=== PATIENT | male | born 1975 | race Two or more races ===

== ENCOUNTER 2021-08-31 16:16 | Emergency (ER) | payer SELFPAY ==
[~2021-08-31] VITALS: Ht 167.6 cm; Wt 86.2 kg
[2021-08-31 16:32] VITALS: BP 169/96
[2021-08-31] MEDS ORDERED: ALBUTEROL FS 2.5 MG/3 ML VIAL.NEB NEB ONE (17:00)
[2021-08-31] MEDS ORDERED: predniSONE 20 MG TABLET PO ONE (17:00)
[2021-08-31] MEDS ORDERED: predniSONE 20 MG TABLET ONE (17:00)
[2021-08-31] MEDS ORDERED: IPRATROPIUM NEB FS 0.5 MG/2.5 ML AMPUL.NEB NEB ONE (17:00)
[2021-08-31] MEDS ORDERED: ALBUTEROL FS 2.5 MG/3 ML VIAL.NEB ONE (17:02)
[2021-08-31] MEDS ORDERED: IPRATROPIUM NEB FS 0.5 MG/2.5 ML AMPUL.NEB ONE (17:02)
[2021-08-31] MEDS ORDERED: ALBUTEROL FS 2.5 MG/0.5 ML VIAL.NEB ONE (17:02)
--- NOTE | 2021-08-31 17:10 | NUR ---
RT GIVING BREATHING TREATMENT
[2021-08-31] MEDS ORDERED: DOXY100C2 PO (17:46)
[2021-08-31] MEDS ORDERED: METH4TAB17 PO (17:46)
[2021-08-31] MEDS ORDERED: BENZ-13 PO (17:46)
[2021-08-31] MEDS ORDERED: ALBU18HF2 INH (17:46)
[2021-08-31] MEDS ORDERED: BENZONATATE 100 MG CAPSULE PO PRN (18:00)
--- NOTE | 2021-08-31 18:00 | NUR ---
Patient discharged to home in stable condition. Written and verbal after care instructions given. Patient verbalizes understanding of instruction.
== END 2021-08-31 18:00 | disposition home or self-care (01) ==
LOC: ER 16:22
DX: J40 Bronchitis, not specified as acute or chronic (principal); Z86.16 Personal history of COVID-19; I10 Essential (primary) hypertension; F17.210 Nicotine dependence, cigarettes, uncomplicated; Z79.899 Other long term (current) drug therapy
CPT/HCPCS: 71045; 93005; 94640; 99283; J7512

== ENCOUNTER 2025-07-20 01:35 | Emergency (ER) | payer OTHER ==
[~2025-07-20] VITALS: Ht 170.2 cm; Wt 100.7 kg
[~2025-07-20 01:35] MED LIST: ALBU18HF2 INH; BENZ-13 PO; DOXY100C2 PO; METH4TAB17 PO
[2025-07-20] MEDS ORDERED: HYDROCODONE/APAP 5/325MG TABLET ONE (02:48)
[2025-07-20] MEDS ORDERED: TDAP [DIPH/PERTUSSIS/TET] 0.5 ML VIAL IM ONE (02:49)
[2025-07-20] MEDS: HYDROCODONE/APAP 5/325MG TABLET PO ONE (02:50)
[2025-07-20] MEDS: TDAP [DIPH/PERTUSSIS/TET] 0.5 ML VIAL IM ONE (02:52)
[2025-07-20] MEDS ORDERED: HYDR-3972 PO (03:00)
[2025-07-20 03:13] VITALS: BP 144/80; TEMP 98.4; O2SAT 98
== END 2025-07-20 03:14 | disposition home or self-care (01) ==
LOC: ER 01:40
DX: S00.83XA Contusion of other part of head, initial encounter (principal); S20.219A Contusion of unspecified front wall of thorax, initial encounter; S70.02XA Contusion of left hip, initial encounter; S00.81XA Abrasion of other part of head, initial encounter; F17.200 Nicotine dependence, unspecified, uncomplicated; I10 Essential (primary) hypertension; Z86.79 Personal history of other diseases of the circulatory system; V12.4XXA Pedal cycle driver injured in collision with two- or three-wheeled motor vehicle in traffic accident, initial encounter; Y93.89 Activity, other specified; Y92.488 Other paved roadways as the place of occurrence of the external cause; Y99.8 Other external cause status
CPT/HCPCS: 70450-TC; 70486-TC; 71100-TC; 72125-TC; 73502; 90715